=== PATIENT | female | born 1975 | race Two or more races ===

== ENCOUNTER 2018-03-27 14:20 | Emergency (ER) | payer MEDICAID ==
[~2018-03-27] VITALS: Ht 152.4 cm; Wt 54.9 kg
--- NOTE | 2018-03-27 15:07 | Emergency Room Report ---
History of Present Illness General Chief Complaint: Complications Source: Patient Present Illness HPI 42-year-old female presents to the emergency department complaining of being seen at [facility] and told that there is no heart tones. Patient reports she is she is approximately 10-11 weeks gestation. Patient denies vaginal bleeding, abdominal pain, cramping, nausea, vomiting, fevers or chills. Patient states that she is with no complications in the first 3 deliveries she reports last resulted in miscarriage. Allergies: Coded Allergies: No Known Allergies (Unverified , 03/27/18) Patient History Past Medical History: none Past Surgical History: none Last Menstrual Period: 01/07/18 Now: Yes : 5 Para: 3 Reviewed Nursing Documentation: PMH: Agreed; PSxH: Agreed Nursing Documentation-PMH Past Medical History: No Stated History Review of Systems All Other Systems: negative except mentioned in HPI Physical Exam Vital Signs Date Time Temp Pulse Resp B/P (MAP) Pulse Ox O2 Delivery O2 Flow Rate FiO2 03/27/18 14:30 98.6 75 16 134/83 100 Room Air 98.6 Sp02 EP Interpretation: reviewed, normal General Appearance: no apparent distress, alert, GCS 15, non-toxic Head: normocephalic, atraumatic ENT: hearing grossly normal, normal voice Neck: full range of motion Respiratory: chest non-tender, lungs clear, normal breath sounds, speaking full sentences Cardiovascular #1: regular rate, rhythm, no edema Gastrointestinal: normal bowel sounds, non tender, soft Rectal: deferred Genitourinary: normal inspection, no CVA tenderness, adnexa normal, deferred - pelvic deferred by US, and no vaginal symptoms. Musculoskeletal: back normal, gait/station normal, normal range of motion, non- tender Neurologic: alert, oriented x3, responsive, motor strength/tone normal, sensory intact, speech normal, grossly normal Psychiatric: judgement/insight normal Skin: normal color, no rash, warm/dry, well hydrated Lymphatic: no adenopathy Medical Decision Making PA Attestation Dr. Gonzalez is my supervising Physician whom patient management has been discussed with. Diagnostic Impression: Primary Impression: Complication of Qualified Codes: O26.91 - related conditions, unspecified, first trimester Additional Impressions: Uterine fibroid Qualified Codes: D25.9 - Leiomyoma of uterus, unspecified Threatened miscarriage in early ER Course 42-year-old female presents to the emergency department complaining of being seen at [facility] and told that there is no heart tones. Patient reports she is she is approximately 10-11 weeks gestation. Patient denies vaginal bleeding, abdominal pain, cramping, nausea, vomiting, fevers or chills. Patient states that she is with no complications in the first 3 deliveries she reports last resulted in miscarriage. Ddx considered but are not limited to: Demise, Missed miscarriage, Spontaneous just to name a few. Vital signs: are WNL, pt. is afebrile H&PE are most consistent with: Possible demise. ORDERS: -Serum Hcg Quant: 30,590 - UA: unremarkable, no evidence of infection. -Pelvic US complete- normal intrauterine estimated at 10 wks, 1 day gestation. ED INTERVENTIONS: None at this time. -D/w pt the radiologists preliminary read, d/w her that normal HR's are much faster above 130's. Pt. is instructed to follow up within 72 hours with her OBGYN for repeat quant and repeat US as needed. Pt. given ED return precautions for if she experiences new symptoms. DISCHARGE: At this time pt. is stable for d/c to home. Will provide printed patient care instructions, and any necessary prescriptions. Care plan and follow up instructions have been discussed with the patient prior to discharge. - Labs Test 03/27/18 15:00 03/27/18 17:00 Human Chorionic Gonadotropin, Quant 32318 mIU/mL (1-6) Urine Color Pale yellow Urine Appearance Clear Urine pH 7 (4.5-8.0) Urine Specific [place] 1.005 (1.005-1.035) Urine Protein Negative (NEGATIVE) Urine Glucose (UA) Negative (NEGATIVE) Urine Ketones Negative (NEGATIVE) Urine Occult Blood Negative (NEGATIVE) Urine Nitrite Negative (NEGATIVE) Urine Bilirubin Negative (NEGATIVE) Urine Urobilinogen Normal MG/DL (0.0-1.0) Urine Leukocyte Esterase Negative (NEGATIVE) CT/MRI/US Diagnostic Results CT/MRI/US Diagnostic Results : Imaging Test Ordered: Pelvic US Impression "Single live IUP approximately 11 weeks 1 day, heart rate low approximately 60 bpm. Uterine fibroids. No ovarian torsion."-Per official radiology report- Please see report for specific details. Last Vital Signs Date Time Temp Pulse Resp B/P (MAP) Pulse Ox O2 Delivery O2 Flow Rate FiO2 03/27/18 14:30 98.6 75 16 134/83 100 Room Air 98.6 Disposition: HOME, SELF-CARE Condition: Stable Scripts Cmb#95/Iron/Fa/Dha ( + DHA COMBO PACK) 1 Each Combo..pkg 1 EACH PO DAILY for 30 Days, #1 PACK Prov: Tessa Chowdary 03/27/18 Patient Instructions: Threatened Miscarriage, [id number], Uterine Fibroids, [id number] Additional Instructions: Take medications as directed. - Your HCG Quant: 30,590 Ultrasound: single Intrauterine with low heart rate of 68bpm, estimated to be approximately 11wks 1 day gestation. Follow up with a OBGYN within 3 days, even if your symptoms have resolved. Return sooner to ED if new symptoms occur, or current symptoms become worse. - Please note that this Emergency Department Report was dictated using [email or web address] technology software, occasionally this can lead to erroneous entry secondary to interpretation by the dictation equipment. Tessa Chowdary Mar 27, 2018 15:07
[2018-03-27 17:13] LABS: APPEARANCE,URINE CLEAR; BILIRUBIN, URINE NEGATIVE (NEGATIVE); COLOR,URINE PALE YELLOW; GLUCOSE, URINE (UA) NEGATIVE (NEGATIVE); KETONES,URINE NEGATIVE (NEGATIVE); LEUKOCYTE ESTERASE ,URINE NEGATIVE (NEGATIVE); NITRITE,URINE NEGATIVE (NEGATIVE); PH,URINE 7 (4.5-8.0); PROTEIN,URINE NEGATIVE (NEGATIVE); UROBILINOGEN,URINE NORMAL MG/DL (0.0-1.0)
[2018-03-27 17:46] VITALS: BP 122/75
[2018-03-27] MEDS ORDERED: PRENATAL + DHA1 EAC2 PO (17:56)
[2018-03-27 18:04] VITALS: BP 122/75
--- NOTE | 2018-03-28 08:44 | Diagnostic Imaging Report ---
Indication: Pelvic pain, positive test, no heart activity demonstrated at outside clinic Technique: Transabdominal and transvaginal images Comparison: none Findings: Uterus measures 13.7 cm in length by 9 cm AP. Within the endometrium, there is a gestational sac. This demonstrates a pole with a crown-rump length of 44 mm, corresponding estimated gestational age of 11 weeks one day. There is only weak detectable heart activity on grayscale images, weak heart signal appears to be detected on M-mode imaging, heart rate 68 bpm if real. No motion. No subchorionic hemorrhage. Multiple uterine fibroids are noted. The left ovary measures 2.5 cm in length. The right ovary measures 1.8 cm in length. No adnexal mass demonstrated. Normal ovarian blood flow demonstrated. Impression: 11 week one day intrauterine . Weak bradycardic heart activity, an absent motion raises concern for pending demise. Recommend evaluation with serial beta hCGs, follow-up sonography. This agrees with the preliminary interpretation provided by [facility] teleradiology service Electronic medical record reviewed; recommendations by ED physician are in concordance with the imaging findings
== END 2018-03-27 18:05 | disposition home or self-care (01) ==
LOC: EMR 17:40
DX: O34.11 Maternal care for benign tumor of corpus uteri, first trimester (principal); Z3A.10 10 weeks gestation of pregnancy
CPT/HCPCS: 36415; 76801; 76830; 81003; 84702; 99284